=== PATIENT | female | born 1985 | race Hispanic/Latino ===

== ENCOUNTER 2018-05-17 16:11 | Emergency (ER) | payer OTHER ==
[2018-05-17] MEDS ORDERED: DEXAMETHASONE SOD PHOSPHATE 10MG/ML 1ML VIAL ONE (16:39)
[2018-05-17] MEDS ORDERED: KETOROLAC TROMETHAMINE 60 MG/2 ML VIAL ONE (16:39)
== END 2018-05-17 17:03 | disposition home or self-care (01) ==
LOC: EDH 16:11
DX: S39.012A Strain of muscle, fascia and tendon of lower back, initial encounter (principal); S29.012A Strain of muscle and tendon of back wall of thorax, initial encounter; Z91.018 Allergy to other foods; V49.49XA Driver injured in collision with other motor vehicles in traffic accident, initial encounter; Y93.89 Activity, other specified; Y92.89 Other specified places as the place of occurrence of the external cause; Y99.8 Other external cause status
CPT/HCPCS: 96372 ×2; 99284; J1100; J1885

== ENCOUNTER 2021-03-11 00:31 | Inpatient (IN) | payer OTHER, SELFPAY ==
[2021-03-11] VITALS (28 sets, daily range): BP systolic 104–140; BP diastolic 44–80
[~2021-03-11] VITALS: Ht 162.6 cm; Wt 154.2 kg
[2021-03-11 01:14] LABS: CREATININE 0.9 mg/dL (0.5-1.5); POTASSIUM 4.2 mmol/L (3.5-5.1)
[2021-03-11 01:20] LABS: ALBUMIN 2.8 g/dL (3.5-5.0); BILIRUBIN,TOTAL 0.6 mg/dL (0.2-1.0); CRP QUANTITATIVE 100.2 mg/L (0.00-9.0); TOTAL PROTEIN, SERUM 7.5 g/dL (6.0-8.3)
[2021-03-11 01:23] LABS: HEMATOCRIT 37.7 % (36-48); LYMPHOCYTES % (AUTO) 15.3 % (21.0-51.0); MEAN CORPUSCULAR HGB CONC 32.1 g/dL (32.0-36.0); MEAN CORPUSCULAR VOLUME 87.3 fL (79-99); MONOCYTES % (AUTO) 3.7 % (3.0-13.0); PLATELET COUNT (AUTO) 180 K/uL (130-400); RED BLOOD CELL COUNT(AUTO) 4.32 MIL/uL (4.00-5.50); RED CELL DISTRIBUTION WIDTH 14.6 % (11.0-15.5); WHITE BLOOD COUNT (AUTO) 2.7 K/uL (4.8-10.8)
[2021-03-11 01:59] LABS: BAND NEUTROPHILS % (MANUAL) 5 % (0-2); LYMPHOCYTES % (MANUAL) 14 % (22-44); MONOCYTES % (MANUAL) 4 % (2-9); SEGMENTED NEUTROPHILS % 77 % (40-70)
[2021-03-11 02:00] LABS: MAN.DIFF COMMENT-IMPRESSION MANUAL DIFFERENTIAL; PLATELET MORPHOLOGY COMMENT ADEQUATE
[2021-03-11 02:25] LABS: ERYTHROCYTE SEDIMENTATION RATE 71 MM/HR (0-20)
[2021-03-11] MEDS: DEXAMETHASONE SOD PHOSPHATE 4 MG/ML 1ML VIAL IVP SCH (03:00)
[2021-03-11] MEDS ORDERED: ONDANSETRON 4MG INJ IV PRN (03:00)
[2021-03-11] MEDS ORDERED: CEFTRIAXONE 1G VIAL IVP ONE (03:00)
[2021-03-11] MEDS ORDERED: ACETAMINOPHEN 325 MG TAB PO PRN ×2 (03:00)
[2021-03-11] MEDS ORDERED: 0.9% NACL 250ML IVPB SCH (03:00)
[2021-03-11] MEDS ORDERED: 0.9% NACL 250ML IVPB ONE (03:00)
[2021-03-11] MEDS ORDERED: ERGOCALCIFEROL (VITAMIN D2) 50,000 UNIT CAPSULE PO ONE (03:00)
[2021-03-11] MEDS ORDERED: AZITHROMYCIN 500MG VIAL IVPB ONE (03:00)
[2021-03-11] MEDS ORDERED: NITROGLYCERIN 0.4 MG SL TAB SL PRN (03:00)
[2021-03-11] MEDS ORDERED: IOHEXOL-350 75 ML VIAL IV ONE (03:04)
[2021-03-11] MEDS ORDERED: AZITHROMYCIN 500MG+NS 250ML 250 ML IV ONE (03:06)
[2021-03-11] MEDS ORDERED: DEXAMETHASONE SOD PHOSPHATE 10MG/ML 1ML VIAL ONE (03:06)
[2021-03-11] MEDS ORDERED: CEFTRIAXONE 1G VIAL ONE (03:07)
[2021-03-11] MEDS: 0.9% NACL 250ML 250 ML IV SCH (03:30)
[2021-03-11] MEDS: AZITHROMYCIN 500MG+NS 250ML IV SCH (03:30)
[2021-03-11] MEDS: ALBUTEROL INHALER 90MCG/INH IH SCH ×6 (03:46→23:00)
[2021-03-11] MEDS ORDERED: SODIUM CHLORIDE 3% FOR INHALATION 4 ML/AMP VIAL.NEB IH ONE (04:11)
[2021-03-11 04:14] LABS: INR 1.02 (0.85-1.15); PROTHROMBIN TIME 11.1 SEC (9.6-11.6)
[2021-03-11 04:15] LABS: PARTIAL THROMBOPLASTIN TIME 29.1 SEC (26.3-35.5)
[2021-03-11 07:22] LABS: ABG BASE EXCESS -0.2 mmol/L (-2.0-3.0); ABG HCO3 23.9 mmol/L (21.0-28.0); ABG OXYGEN SATURATION 98.8 % (95.0-99.0); ABG PCO2 38 mmHg (32-45)
[2021-03-11] MEDS: ACETYLCYSTEINE 600 MG CAPSULE PO SCH ×2 (08:55→21:00)
[2021-03-11] MEDS: FAMOTIDINE 20MG TAB PO SCH ×2 (08:55→21:00)
[2021-03-11] MEDS: ASCORBIC ACID 500 MG TAB PO SCH (08:55)
[2021-03-11] MEDS: ENOXAPARIN SODIUM 40 MG/0.4 ML SYRINGE SQ SCH (08:56)
[2021-03-11] MEDS: ZINC SULFATE 220 CAPSULE PO SCH (08:56)
[2021-03-11] MEDS ORDERED: PHARMACY COMMUNICATION**REMDESIVIR ORDER MISC SCH (11:30)
[2021-03-11] MEDS ORDERED: COMPOUND IV REFRIGERATED 1 EACH IVSOLN MISC PRN (13:00)
[2021-03-11] MEDS ORDERED: PHARMACY COMMUNICATION MISC SCH (14:30)
[2021-03-11] MEDS ORDERED: REMDESIVIR (EUA) 520 200 MG in 0.9% NACL 250ML 250 ML IV SCH (15:00)
[2021-03-11] MEDS ORDERED: TOCILIZUMAB IV ONE (18:00)
[2021-03-11] MEDS ORDERED: [UNRECOGNIZED DRUG - OTHER] IV ONE (18:00)
[2021-03-12] VITALS (7 sets, daily range): BP systolic 109–140; BP diastolic 42–76
[2021-03-12] MEDS: AZITHROMYCIN 500MG+NS 250ML IV SCH (03:43)
[2021-03-12] MEDS: 0.9% NACL 250ML 250 ML IV SCH (03:44)
[2021-03-12] MEDS: ALBUTEROL INHALER 90MCG/INH IH SCH ×6 (03:45→23:00)
[2021-03-12] MEDS: DEXAMETHASONE SOD PHOSPHATE 4 MG/ML 1ML VIAL IVP SCH ×2 (03:46→16:22)
[2021-03-12 05:02] LABS: HEMATOCRIT 36.3 % (36-48); LYMPHOCYTES % (AUTO) 23.5 % (21.0-51.0); MEAN CORPUSCULAR HEMOGLOBIN 27.7 pg (27.0-33.0); MEAN CORPUSCULAR HGB CONC 31.4 g/dL (32.0-36.0); MEAN CORPUSCULAR VOLUME 88.3 fL (79-99); MONOCYTES % (AUTO) 6.1 % (3.0-13.0); NEUTROPHILS % (AUTO) 70.1 % (40.0-77.0); PLATELET COUNT (AUTO) 197 K/uL (130-400); RED BLOOD CELL COUNT(AUTO) 4.11 MIL/uL (4.00-5.50); RED CELL DISTRIBUTION WIDTH 14.6 % (11.0-15.5); WHITE BLOOD COUNT (AUTO) 3.1 K/uL (4.8-10.8)
[2021-03-12 05:32] LABS: ALBUMIN 2.6 g/dL (3.5-5.0); BILIRUBIN,TOTAL 0.4 mg/dL (0.2-1.0); CREATININE 0.8 mg/dL (0.5-1.5); CRP QUANTITATIVE 63.4 mg/L (0.00-9.0); POTASSIUM 4.4 mmol/L (3.5-5.1)
[2021-03-12] MEDS: REMDESIVIR LABS MISC SCH (06:00)
[2021-03-12] MEDS ORDERED: AZITHROMYCIN 500MG VIAL IVPB SCH (09:00)
[2021-03-12] MEDS: FAMOTIDINE 20MG TAB PO SCH ×2 (09:02→20:38)
[2021-03-12] MEDS: ACETYLCYSTEINE 600 MG CAPSULE PO SCH (09:02)
[2021-03-12] MEDS: BUSPIRONE HCL 5 MG TABLET PO SCH ×2 (09:02→20:38)
[2021-03-12] MEDS: ENOXAPARIN SODIUM 40 MG/0.4 ML SYRINGE SQ SCH (09:02)
[2021-03-12] MEDS: ASCORBIC ACID 500 MG TAB PO SCH (09:02)
[2021-03-12] MEDS: ZINC SULFATE 220 CAPSULE PO SCH (09:05)
[2021-03-12] MEDS ORDERED: ZINC SULFATE 220 CAPSULE ONE (09:05)
[2021-03-12] MEDS: CEFTRIAXONE 1G VIAL IVP SCH (09:06)
[2021-03-12] MEDS: REMDESIVIR (EUA) 520 100 MG in 0.9% NACL 250ML 250 ML IV SCH (16:19)
[2021-03-13 03:00] VITALS: BP 112/58
[2021-03-13] MEDS: DEXAMETHASONE SOD PHOSPHATE 4 MG/ML 1ML VIAL IVP SCH ×2 (03:00→15:07)
[2021-03-13] MEDS: ALBUTEROL INHALER 90MCG/INH IH SCH ×5 (03:00→20:32)
[2021-03-13] MEDS: AZITHROMYCIN 500MG+NS 250ML IV SCH (03:14)
[2021-03-13] MEDS: 0.9% NACL 250ML 250 ML IV SCH (03:14)
[2021-03-13 04:47] LABS: EOSINOPHILS % (AUTO) 0.2 % (0.0-8.0); HEMATOCRIT 30.1 % (36-48); LYMPHOCYTES % (AUTO) 23.4 % (21.0-51.0); MEAN CORPUSCULAR HEMOGLOBIN 28.2 pg (27.0-33.0); MEAN CORPUSCULAR HGB CONC 31.6 g/dL (32.0-36.0); MEAN CORPUSCULAR VOLUME 89.3 fL (79-99); MONOCYTES % (AUTO) 6.9 % (3.0-13.0); NEUTROPHILS % (AUTO) 69.3 % (40.0-77.0); PLATELET COUNT (AUTO) 150 K/uL (130-400); RED BLOOD CELL COUNT(AUTO) 3.37 MIL/uL (4.00-5.50); RED CELL DISTRIBUTION WIDTH 14.6 % (11.0-15.5); WHITE BLOOD COUNT (AUTO) 4.2 K/uL (4.8-10.8)
[2021-03-13] MEDS: REMDESIVIR LABS MISC SCH (05:27)
[2021-03-13 06:32] LABS: ALBUMIN 2.7 g/dL (3.5-5.0); BILIRUBIN,TOTAL 0.2 mg/dL (0.2-1.0); CREATININE 0.8 mg/dL (0.5-1.5); CRP QUANTITATIVE 32.6 mg/L (0.00-9.0); POTASSIUM 4.6 mmol/L (3.5-5.1); TOTAL PROTEIN, SERUM 6.9 g/dL (6.0-8.3)
[2021-03-13 07:59] VITALS: BP 121/80
[2021-03-13] MEDS: BUSPIRONE HCL 5 MG TABLET PO SCH ×2 (09:40→20:32)
[2021-03-13] MEDS: FAMOTIDINE 20MG TAB PO SCH ×2 (09:40→20:32)
[2021-03-13] MEDS: CEFTRIAXONE 1G VIAL IVP SCH (09:40)
[2021-03-13] MEDS: ENOXAPARIN SODIUM 40 MG/0.4 ML SYRINGE SQ SCH (09:40)
[2021-03-13 12:00] VITALS: BP 125/78
[2021-03-13] MEDS: REMDESIVIR (EUA) 520 100 MG in 0.9% NACL 250ML 250 ML IV SCH (15:00)
[2021-03-13 16:00] VITALS: BP 118/70
[2021-03-13] MEDS ORDERED: POLYETHYLENE GLYCOL 3350 17 GM POWD.PACK PO ONE (17:00)
[2021-03-13 20:34] VITALS: BP 110/59
[2021-03-14 00:10] VITALS: BP 116/72
[2021-03-14] MEDS: ALBUTEROL INHALER 90MCG/INH IH SCH ×2 (02:54→04:13)
[2021-03-14] MEDS: 0.9% NACL 250ML 250 ML IV SCH (02:54)
[2021-03-14] MEDS: AZITHROMYCIN 500MG+NS 250ML IV SCH (02:54)
[2021-03-14] MEDS: DEXAMETHASONE SOD PHOSPHATE 4 MG/ML 1ML VIAL IVP SCH ×3 (03:00→21:37)
[2021-03-14 05:00] LABS: EOSINOPHILS % (AUTO) 0.2 % (0.0-8.0); LYMPHOCYTES % (AUTO) 24.2 % (21.0-51.0); MEAN CORPUSCULAR HGB CONC 31.1 g/dL (32.0-36.0); MEAN CORPUSCULAR VOLUME 90.3 fL (79-99); MONOCYTES % (AUTO) 7.6 % (3.0-13.0); NEUTROPHILS % (AUTO) 67.7 % (40.0-77.0); PLATELET COUNT (AUTO) 266 K/uL (130-400); RED BLOOD CELL COUNT(AUTO) 4.21 MIL/uL (4.00-5.50); RED CELL DISTRIBUTION WIDTH 14.5 % (11.0-15.5); WHITE BLOOD COUNT (AUTO) 6.1 K/uL (4.8-10.8)
[2021-03-14 05:27] LABS: ALBUMIN 2.8 g/dL (3.5-5.0); BILIRUBIN,TOTAL 0.3 mg/dL (0.2-1.0); CREATININE 0.7 mg/dL (0.5-1.5); CRP QUANTITATIVE 17.3 mg/L (0.00-9.0); POTASSIUM 4.5 mmol/L (3.5-5.1)
[2021-03-14] MEDS: REMDESIVIR LABS MISC SCH (05:59)
[2021-03-14] MEDS ORDERED: LACTULOSE 20 GM/30 ML UDCUP PO PRN (06:00)
[2021-03-14 07:45] VITALS: BP 133/88
[2021-03-14] MEDS ORDERED: ALBUTEROL INHALER 90MCG/INH IH PRN (08:30)
[2021-03-14] MEDS: DOCUSATE SODIUM 100 MG CAP PO SCH ×2 (08:30→15:22)
[2021-03-14] MEDS: FAMOTIDINE 20MG TAB PO SCH ×2 (08:40→21:31)
[2021-03-14] MEDS: ENOXAPARIN SODIUM 40 MG/0.4 ML SYRINGE SQ SCH (08:40)
[2021-03-14] MEDS: BUSPIRONE HCL 5 MG TABLET PO SCH ×2 (08:40→21:31)
[2021-03-14] MEDS ORDERED: SENNOSIDES 8.6 MG TABLET PO SCH (09:00)
[2021-03-14 11:45] VITALS: BP 113/66
[2021-03-14] MEDS: REMDESIVIR (EUA) 520 100 MG in 0.9% NACL 250ML 250 ML IV SCH (14:53)
[2021-03-14 16:20] VITALS: BP 127/80
[2021-03-14 20:00] VITALS: BP 123/66
[2021-03-14 23:37] VITALS: BP 126/71
[2021-03-15] MEDS: DOCUSATE SODIUM 100 MG CAP PO SCH (00:30)
[2021-03-15 04:19] VITALS: BP 119/80
[2021-03-15] MEDS: REMDESIVIR LABS MISC SCH (06:00)
[2021-03-15 06:13] LABS: ALBUMIN 2.7 g/dL (3.5-5.0); BILIRUBIN,TOTAL 0.2 mg/dL (0.2-1.0); CREATININE 0.7 mg/dL (0.5-1.5); POTASSIUM 4.7 mmol/L (3.5-5.1); TOTAL PROTEIN, SERUM 6.8 g/dL (6.0-8.3)
[2021-03-15] MEDS ORDERED: DOCUSATE SODIUM 100 MG CAP PO PRN (07:00)
[2021-03-15] MEDS: FAMOTIDINE 20MG TAB PO SCH ×2 (09:00→09:21)
[2021-03-15] MEDS ORDERED: POLYETHYLENE GLYCOL 3350 17 GM POWD.PACK PO SCH (09:00)
[2021-03-15] MEDS: BUSPIRONE HCL 5 MG TABLET PO SCH ×2 (09:20→21:14)
[2021-03-15] MEDS: ENOXAPARIN SODIUM 40 MG/0.4 ML SYRINGE SQ SCH (09:21)
[2021-03-15 12:30] VITALS: BP 128/69
[2021-03-15] MEDS: REMDESIVIR (EUA) 520 100 MG in 0.9% NACL 250ML 250 ML IV SCH (15:49)
[2021-03-15] MEDS: DEXAMETHASONE SOD PHOSPHATE 4 MG/ML 1ML VIAL IVP SCH (15:49)
[2021-03-15 20:00] VITALS: BP 112/72
[2021-03-15 20:14] VITALS: BP 122/72
[2021-03-15 23:27] VITALS: BP 116/49
[2021-03-16] VITALS (7 sets, daily range): BP systolic 111–125; BP diastolic 50–73
[2021-03-16] MEDS: DEXAMETHASONE SOD PHOSPHATE 4 MG/ML 1ML VIAL IVP SCH (02:18)
[2021-03-16] MEDS: REMDESIVIR LABS MISC SCH (05:14)
[2021-03-16] MEDS: FAMOTIDINE 20MG TAB PO SCH (08:18)
[2021-03-16] MEDS: ENOXAPARIN SODIUM 40 MG/0.4 ML SYRINGE SQ SCH (08:18)
[2021-03-16] MEDS: BUSPIRONE HCL 5 MG TABLET PO SCH (08:18)
[2021-03-16] MEDS ORDERED: Buspirone Hcl PO (08:29)
[2021-03-16] MEDS ORDERED: APIX2.5T PO (08:29)
[2021-03-16] MEDS ORDERED: DEXA6TAB PO (08:29)
[2021-03-16] MEDS ORDERED: APIXABAN 2.5 MG TABLET PO SCH (09:00)
[2021-03-16] MEDS ORDERED: DEXAMETHASONE 4 MG TAB PO SCH ×2 (09:00)
== END 2021-03-16 17:45 | DRG 177 ==
LOC: EDH 01:51 → EDHIP 01:52 → 2BH 09:00
PROVIDERS: ADMIT Internal Medicine; ATTEND Internal Medicine
PROC: XW033H5 Introduction of Tocilizumab into Peripheral Vein, Percutaneous Approach, New Technology Group 5 (ICD-10-PCS; principal; 2021-03-11)
PROC: XW033E5 Introduction of Remdesivir Anti-infective into Peripheral Vein, Percutaneous Approach, New Technology Group 5 (ICD-10-PCS; 2021-03-11)
PROC: 5A0935A Assistance with Respiratory Ventilation, Less than 24 Consecutive Hours, High Flow/Velocity Cannula (ICD-10-PCS; 2021-03-11)
PROC: 5A0935A Assistance with Respiratory Ventilation, Less than 24 Consecutive Hours, High Flow/Velocity Cannula (ICD-10-PCS; 2021-03-12)
PROC: 5A0935A Assistance with Respiratory Ventilation, Less than 24 Consecutive Hours, High Flow/Velocity Cannula (ICD-10-PCS; 2021-03-14)
DX: U07.1 COVID-19 (principal); J96.01 Acute respiratory failure with hypoxia; J12.82 Pneumonia due to coronavirus disease 2019; E44.0 Moderate protein-calorie malnutrition; Z68.43 Body mass index [BMI] 50.0-59.9, adult; D68.59 Other primary thrombophilia; D70.9 Neutropenia, unspecified; G47.33 Obstructive sleep apnea (adult) (pediatric); E66.01 Morbid (severe) obesity due to excess calories; R74.01 Elevation of levels of liver transaminase levels; I89.0 Lymphedema, not elsewhere classified; Z91.018 Allergy to other foods; Z87.891 Personal history of nicotine dependence; Z79.01 Long term (current) use of anticoagulants; Z79.899 Other long term (current) drug therapy; Z91.19 Patient's noncompliance with other medical treatment and regimen; Z83.3 Family history of diabetes mellitus; Z83.79 Family history of other diseases of the digestive system; Z82.49 Family history of ischemic heart disease and other diseases of the circulatory system
CPT/HCPCS: 36415; 36600; 71045; 71275; 80053; 82550; 82728; 82803; 83605; 83615; 83735; 84145; 84484; 85025; 85378; 85610; 85651; 85730; 86140; 87040; 87071; 87088; 87205; 87635; 93005; 93970; 94760; 97039; G0378; J0456; J0696; J1100; J1650; J2405; J7050; Q9967